=== PATIENT | male | born 2000 | race African-American/Black ===

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

== ENCOUNTER 2019-07-19 05:03 | Emergency (ER) | payer SELFPAY ==
[~2019-07-19] VITALS: Ht 172.7 cm; Wt 61.7 kg
[~2019-07-19 05:03] MED LIST changes: +ERYT1OIN6 OP
--- NOTE | 2019-07-19 06:40 | PHYS DOC ---
Past Medical History Past Medical History: No Pertinent History Past Surgical History: No Surgical History Alcohol Use: None Drug Use: None Adult General Chief Complaint Chief Complaint: NAUSEA/VOMITING/DIARRHA HPI HPI Patient is a 19-year-old male who presents with complaint of epigastric pain with nausea and vomiting that started last night at about 9 PM. Patient also indicates that he has had a little bit of diarrhea. Patient rates his pain as moderate and describes pain as cramping. He denies any radiation of the pain. Patient has had no fever. He states that he had a simmons burger last night for dinner.[] Review of Systems Review of Systems Constitutional: Denies fever or chills [] Respiratory: Denies cough or shortness of breath [] Cardiovascular: No additional information not addressed in HPI [] GI: Complains of epigastric pain with nausea and vomiting with a little diarrhea [] Musculoskeletal: Denies back pain or joint pain [] Integument: Denies rash or skin lesions [] Neurologic: Denies headache, focal weakness or sensory changes [] All other systems were reviewed and found to be within normal limits, except as documented in this note. Current Medications Current Medications Current Medications Medications (Trade) Dose Ordered Sig/Lucita Start Time Stop Time Status Last Admin Dose Admin Info (CONTRAST GIVEN -- Rx MONITORING) 1 each PRN DAILY PRN 07/19/19 09:00 07/21/19 08:59 Iohexol (Omnipaque 300 Mg/ml) 75 ml 1X ONCE 07/19/19 09:00 07/19/19 09:01 DC 07/19/19 09:09 75 ML Morphine Sulfate (Morphine Sulfate) 4 mg PRN Q15MIN PRN 07/19/19 06:45 07/20/19 06:44 07/19/19 07:02 4 MG Ondansetron HCl (Zofran) 4 mg 1X ONCE 07/19/19 06:45 07/19/19 06:46 DC 07/19/19 07:01 4 MG Sodium Chloride 1,000 ml @ 1,000 mls/hr Q1H 07/19/19 06:45 07/19/19 07:44 DC 07/19/19 07:01 1,000 MLS/HR Allergies Allergies Allergies Coded Allergies Type Severity Reaction Last Updated Verified No Known Drug Allergies 06/14/18 No Physical Exam Physical Exam Constitutional: Well developed, well nourished, no acute distress, non-toxic appearance. [] HENT: Normocephalic, atraumatic, bilateral external ears normal, oropharynx moist, no oral exudates, nose normal. [] Eyes: PERRLA, EOMI, conjunctiva normal, no discharge. [] Neck: Normal range of motion, no tenderness, supple. [] Cardiovascular: Regular rate and rhythm[] Lungs & Thorax: Bilateral breath sounds clear to auscultation [] Abdomen: Bowel sounds normal, soft, with epigastric tenderness. [] Skin: Warm, dry, no erythema, no rash. [] Extremities: No tenderness, no cyanosis, no clubbing, ROM intact, no edema. [] Neurologic: Alert and oriented X 3, no focal deficits noted. [] Current Patient Data Vital Signs Vital Signs Date Time Temp Pulse Resp B/P (MAP) Pulse Ox O2 Delivery O2 Flow Rate FiO2 07/19/19 07:02 97 Room Air 07/19/19 06:28 97.9 93 18 144/88 (106) 97.9 Lab Values Laboratory Tests Test 07/19/19 06:50 07/19/19 07:08 07/19/19 07:25 White Blood Count 14.0 x10^3/uL (4.0-11.0) H Red Blood Count 5.73 x10^6/uL (4.30-5.70) H Hemoglobin 17.5 g/dL (13.0-17.5) Hematocrit 51.7 % (39.0-53.0) Mean Corpuscular Volume 90 fL (79-100) Mean Corpuscular Hemoglobin 31 pg (25-35) Mean Corpuscular Hemoglobin Concent 34 g/dL (31-37) Red Cell Distribution Width 13.4 % (11.5-14.5) Platelet Count 291 x10^3/uL (140-400) Neutrophils (%) (Auto) 94 % (31-73) H Lymphocytes (%) (Auto) 3 % (24-48) L Monocytes (%) (Auto) 4 % (0-9) Eosinophils (%) (Auto) 0 % (0-3) Basophils (%) (Auto) 0 % (0-3) Neutrophils # (Auto) 13.1 x10^3/uL (1.8-7.7) H Lymphocytes # (Auto) 0.4 x10^3/uL (1.0-4.8) L Monocytes # (Auto) 0.5 x10^3/uL (0.0-1.1) Eosinophils # (Auto) 0.0 x10^3/uL (0.0-0.7) Basophils # (Auto) 0.0 x10^3/uL (0.0-0.2) Platelet Estimate Pending Urine Collection Type Unknown Urine Color Yellow Urine Clarity Clear Urine pH 7.5 Urine Specific [place] 1.025 Urine Protein Negative mg/dL (NEG-TRACE) Urine Glucose (UA) Negative mg/dL (NEG) Urine Ketones (Stick) Negative mg/dL (NEG) Urine Blood Negative (NEG) Urine Nitrite Negative (NEG) Urine Bilirubin Negative (NEG) Urine Urobilinogen Dipstick 1.0 mg/dL (0.2 mg/dL) Urine Leukocyte Esterase Trace (NEG) Urine RBC 1-2 /HPF (0-2) Urine WBC 1-4 /HPF (0-4) Urine Squamous Epithelial Cells Few /LPF Urine Bacteria 0 /HPF (0-FEW) Urine Mucus Mod /LPF Sodium Level 143 mmol/L (136-145) Potassium Level 3.9 mmol/L (3.5-5.1) Chloride Level 103 mmol/L (98-107) Carbon Dioxide Level 30 mmol/L (21-32) Anion Gap 10 (6-14) Blood Urea Nitrogen 17 mg/dL (8-26) Creatinine 1.0 mg/dL (0.7-1.3) Estimated GFR (Cockcroft-Gault) 115.3 BUN/Creatinine Ratio 17 (6-20) Glucose Level 110 mg/dL (70-99) H Calcium Level 8.9 mg/dL (8.5-10.1) Total Bilirubin 0.6 mg/dL (0.2-1.0) Aspartate Amino Transferase (AST) 22 U/L (15-37) Alanine Aminotransferase (ALT) 20 U/L (16-63) Alkaline Phosphatase 69 U/L (46-116) Total Protein 7.2 g/dL (6.4-8.2) Albumin 4.0 g/dL (3.4-5.0) Albumin/Globulin Ratio 1.3 (1.0-1.7) Lipase 73 U/L (73-393) Laboratory Tests 07/19/19 06:50 Laboratory Tests 07/19/19 07:25 EKG EKG [] Radiology/Procedures Radiology/Procedures [] Impressions: PROCEDURE: CT ABD PELV W/ IV CONTRST ONLY CT abdomen pelvis with contrast. HISTORY: Upper abdominal pain CT scan of the abdomen and pelvis was done using 75 mL Omnipaque 300 contrast. Lung bases are clear. There is no effusion. A liver lesion is not identified. There is no calcified gallstone or gallbladder wall thickening. Spleen and adrenal glands are normal. Pancreas is normal. There is no mass or hydronephrosis in the kidneys. Bowel pattern is normal. There is no adenopathy. A short portion of the appendix is noted in the retrocecal location and appears normal. There is a trace of fluid in the pelvis which is nonspecific. Bowel pattern is normal. There is no bowel obstruction. Lack of intra-abdominal fat limits evaluation. Lack of oral contrast limits evaluation. IMPRESSION: 1. No gallstones or gallbladder wall thickening noted. 2. No hydronephrosis noted in the kidneys. 3. No bowel obstruction noted. 4. Short portion of the index was visualized and appeared unremarkable but the appendix incompletely evaluated 5. Nonspecific trace of fluid in the pelvis. 6. No other abnormality noted. PQRS Compliance Statement: One or more of the following individualized dose reduction techniques were utilized for this examination: 1. Automated exposure control 2. Adjustment of the mA and/or kV according to patient size 3. Use of iterative reconstruction technique Electronically signed by: Av St MD (07/19/2019 9:28 AM) [facility] Course & Med Decision Making Course & Med Decision Making Pertinent Labs and Imaging studies reviewed. (See chart for details) [] Dragon Disclaimer Dragon Disclaimer This electronic medical record was generated, in whole or in part, using a voice recognition dictation system. Departure Departure Impression: Primary Impression: Gastroenteritis Disposition: 01 HOME, SELF-CARE Condition: STABLE Referrals: NO PCP (PCP) Patient Instructions: Viral Gastroenteritis Scripts Diphenoxylate Hcl/Atropine (LOMOTIL TABLET) 1 Each Tablet 1 TAB PO TID PRN for DIARRHEA, #30 TAB Prov: ARVIND LAWRENCE Jr. DO 07/19/19 Ondansetron (ONDANSETRON ODT) 4 Mg Tab.rapdis 1 TAB PO PRN Q6-8HRS PRN for NAUSEA, #15 TAB Prov: ARVNID LAWRENCE Jr. DO 07/19/19 ARVIND LAWRENCE Jr. DO Jul 19, 2019 06:40
[2019-07-19] MEDS ORDERED: MORPHINE SULFATE 4 MG/ML VIAL. IV/SQ PRN (06:45)
[2019-07-19] MEDS ORDERED: IV NORMAL SALINE 1000ML BAG 1,000 ML IV SCH (06:45)
[2019-07-19] MEDS ORDERED: ONDANSETRON PF 4 MG/2 ML VIAL. IV ONE (06:45)
[2019-07-19 07:07] LABS: BASO % 0 % (0-3); EOS % 0 % (0-3); HEMATOCRIT 51.7 % (39.0-53.0); HEMOGLOBIN 17.5 g/dL (13.0-17.5); LYMPH # 0.4 x10^3/uL (1.0-4.8); LYMPH % 3 % (24-48); MEAN CORPUSCULAR HEMOGLOBIN 31 pg (25-35); MEAN CORPUSCULAR HGB CONC 34 g/dL (31-37); MEAN CORPUSCULAR VOLUME 90 fL (79-100); MONO # 0.5 x10^3/uL (0.0-1.1); MONO % 4 % (0-9); NEUT # 13.1 x10^3/uL (1.8-7.7); NEUT % 94 % (31-73); PLATELET COUNT 291 x10^3/uL (140-400); RED BLOOD COUNT 5.73 x10^6/uL (4.30-5.70); RED CELL DISTRIBUTION WIDTH 13.4 % (11.5-14.5)
[2019-07-19 07:19] LABS: BILIRUBIN,URINE NEGATIVE (NEG); CLARITY,URINE CLEAR; COLOR,URINE YELLOW; NITRITE,URINE NEGATIVE (NEG); PH,URINE 7.5; PROTEIN,URINE NEGATIVE (NEG-TRACE)
[2019-07-19 07:31] LABS: BACTERIA,URINE 0 /HPF (0-FEW); SQUAMOUS EPITHELIAL CELL,UR FEW /LPF
[2019-07-19 08:24] LABS: CALCIUM 8.9 mg/dL (8.5-10.1); GFR 115.3; POTASSIUM 3.9 mmol/L (3.5-5.1)
[2019-07-19 08:31] LABS: ALBUMIN/GLOBULIN RATIO 1.3 (1.0-1.7); TOTAL BILIRUBIN 0.6 mg/dL (0.2-1.0); TOTAL PROTEIN 7.2 g/dL (6.4-8.2)
[2019-07-19] MEDS ORDERED: CONTRAST GIVEN. MC PRN (09:00)
[2019-07-19] MEDS ORDERED: IOHEXOL 300 MG/ML 100ML VIAL. IV ONE (09:00)
--- NOTE | 2019-07-19 09:31 | RAD ---
CT abdomen pelvis with contrast. HISTORY: Upper abdominal pain CT scan of the abdomen and pelvis was done using 75 mL Omnipaque 300 contrast. Lung bases are clear. There is no effusion. A liver lesion is not identified. There is no calcified gallstone or gallbladder wall thickening. Spleen and adrenal glands are normal. Pancreas is normal. There is no mass or hydronephrosis in the kidneys. Bowel pattern is normal. There is no adenopathy. A short portion of the appendix is noted in the retrocecal location and appears normal. There is a trace of fluid in the pelvis which is nonspecific. Bowel pattern is normal. There is no bowel obstruction. Lack of intra-abdominal fat limits evaluation. Lack of oral contrast limits evaluation. IMPRESSION: 1. No gallstones or gallbladder wall thickening noted. 2. No hydronephrosis noted in the kidneys. 3. No bowel obstruction noted. 4. Short portion of the index was visualized and appeared unremarkable but the appendix incompletely evaluated 5. Nonspecific trace of fluid in the pelvis. 6. No other abnormality noted. PQRS Compliance Statement: One or more of the following individualized dose reduction techniques were utilized for this examination: 1. Automated exposure control 2. Adjustment of the mA and/or kV according to patient size 3. Use of iterative reconstruction technique Electronically signed by: Av St MD (07/19/2019 9:28 AM) [facility]
[2019-07-19] MEDS ORDERED: DIPH1TAB PO (09:38)
[2019-07-19] MEDS ORDERED: ONDA4TAB12 PO (09:38)
[2019-07-19 09:54] LABS: % BANDS 28 % (0-9); % LYMPHS 3 % (24-48); % MONOS 3 % (0-10); % SEGS 66 % (35-66); ANISOCYTOSIS SLIGHT; PLT ESTIMATE ADEQUATE (ADEQUATE); TOXIC VACUOLATION SLIGHT
[2019-07-19 10:00] VITALS: BP 134/81
== END 2019-07-19 10:05 | disposition home or self-care (01) ==
LOC: ER 05:03
DX: K52.9 Noninfective gastroenteritis and colitis, unspecified (principal); R11.2 Nausea with vomiting, unspecified; R19.7 Diarrhea, unspecified
CPT/HCPCS: 36415; 74177; 80053; 81001; 83690; 85007; 85025; 87086; 96361; 96374; 96375; 99285; J2270; J2405; J7030; Q9967

== ENCOUNTER 2021-06-03 00:13 | Emergency (ER) | payer SELFPAY ==
[~2021-06-03] VITALS: Ht 175.3 cm; Wt 60.0 kg
[~2021-06-03 00:13] MED LIST changes: +DIPH1TAB PO; +ONDA4TAB12 PO
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
[2021-06-03] MEDS ORDERED: ONDANSETRON PF 4 MG/2 ML VIAL. IVP ONE (00:45)
[2021-06-03] MEDS ORDERED: IV NORMAL SALINE 1000ML BAG 1,000 ML IV ONE (00:45)
[2021-06-03] MEDS ORDERED: MORPHINE SULFATE 4 MG/ML INJ. IVP ONE ×2 (00:45→02:30)
[2021-06-03 01:18] LABS: BASO # 0.1 x10^3/uL (0.0-0.2); BASO % 1 % (0-3); EOS # 0.2 x10^3/uL (0.0-0.7); EOS % 1 % (0-3); HEMATOCRIT 26.8 % (39.0-53.0); HEMOGLOBIN 8.8 g/dL (13.0-17.5); LYMPH # 1.9 x10^3/uL (1.0-4.8); LYMPH % 12 % (24-48); MEAN CORPUSCULAR HEMOGLOBIN 30 pg (25-35); MEAN CORPUSCULAR HGB CONC 33 g/dL (31-37); MEAN CORPUSCULAR VOLUME 92 fL (79-100); MONO # 1.5 x10^3/uL (0.0-1.1); MONO % 9 % (0-9); NEUT # 12.7 x10^3/uL (1.8-7.7); NEUT % 78 % (31-73); PLATELET COUNT 477 x10^3/uL (140-400); RED BLOOD COUNT 2.92 x10^6/uL (4.30-5.70); RED CELL DISTRIBUTION WIDTH 14.2 % (11.5-14.5); WHITE BLOOD COUNT 16.3 x10^3/uL (4.0-11.0)
[2021-06-03 01:24] LABS: CALCIUM 8.9 mg/dL (8.5-10.1); GFR 113.1; POTASSIUM 3.6 mmol/L (3.5-5.1)
[2021-06-03 01:31] LABS: ALBUMIN 3.5 g/dL (3.4-5.0); ALBUMIN/GLOBULIN RATIO 0.9 (1.0-1.7); TOTAL BILIRUBIN 1.4 mg/dL (0.2-1.0); TOTAL PROTEIN 7.2 g/dL (6.4-8.2)
[2021-06-03 01:37] LABS: CLARITY,URINE BLOODY; COLOR,URINE RED
[2021-06-03 01:42] LABS: RBC,URINE TNTC /HPF (0-2)
[2021-06-03 01:43] LABS: WBC,URINE 20-40 /HPF (0-4)
[2021-06-03 01:44] LABS: BACTERIA,URINE 0 /HPF (0-FEW)
[2021-06-03 01:55] LABS: BARBITURATES NEG (NEG); BENZODIAZEPINES NEG (NEG); CANNABINOIDS POS (NEG); COCAINE NEG (NEG); METHADONE NEG (NEG); OPIATES POS (NEG); PHENCYCLIDINE NEG (NEG)
[2021-06-03 01:58] LABS: AMPHETAMINE/METHAMPHETAMINE NEG (NEG)
[2021-06-03] MEDS ORDERED: IOHEXOL 300 MG/ML 100ML VIAL. IV ONE (02:30)
[2021-06-03] MEDS ORDERED: CONTRAST GIVEN. MC PRN (02:30)
[2021-06-03] MEDS ORDERED: LIDOCAINE 2% JELLY 6ML IN APPLICATOR. MM ONE (02:30)
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
[2021-06-03 03:30] VITALS: BP 139/77
[2021-06-03] MEDS ORDERED: CIPROFLOXACIN HCL 250 MG TABLET. PO ONE (04:45)
[2021-06-03] MEDS ORDERED: CIPR500T94 PO (04:50)
[2021-06-03] MEDS ORDERED: OXYC5CAP PO (04:50)
== END 2021-06-03 05:18 | disposition home or self-care (01) ==
LOC: ER 00:13
DX: S30.1XXS Contusion of abdominal wall, sequela (principal); S31.139S Puncture wound of abdominal wall without foreign body, unspecified quadrant without penetration into peritoneal cavity, sequela; R31.0 Gross hematuria; X58.XXXS Exposure to other specified factors, sequela
CPT/HCPCS: 36415; 74177; 80053; 80307; 81001; 83605; 83690; 85025; 87040; 87077; 87086; 87186; 96361; 96372; 96374; 96375; 96376; 99285; J2060; J2270; J2405; J7030; Q9967

== ENCOUNTER 2021-06-17 18:23 | Emergency (ER) | payer SELFPAY ==
[~2021-06-17] VITALS: Ht 177.8 cm; Wt 54.0 kg
[~2021-06-17 18:23] MED LIST changes: +CIPR500T94 PO; +OXYC5CAP PO
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
[2021-06-17 20:21] VITALS: BP 116/80
== END 2021-06-17 20:22 | disposition home or self-care (01) ==
LOC: ER 18:23
DX: T83.098A Other mechanical complication of other urinary catheter, initial encounter (principal); F17.200 Nicotine dependence, unspecified, uncomplicated; Y84.6 Urinary catheterization as the cause of abnormal reaction of the patient, or of later complication, without mention of misadventure at the time of the procedure; Y92.89 Other specified places as the place of occurrence of the external cause
CPT/HCPCS: 51702; 99284